=== PATIENT | male | born 1990 | race Caucasian/White ===

== ENCOUNTER 2018-07-24 00:27 | Emergency (ER) | payer OTHER ==
--- NOTE | 2018-07-24 01:37 | PDOC ---
History of Present Illness - General History Source: Patient Exam Limitations: No Limitations - History of Present Illness Initial Comments: 07/24/18 01:45 The patient is a 27 year old male with no PMH who presents to the ER for a sore throat today. Patient states he has had strep throat multiple times in the past , last time was 2 years ago. Patient has not followed up with ENT recently. Patient is requesting antibiotics and would not like to be tested for strep throat at this time. Rhe patient denies cough, chest pain, shortness of breath, headache and dizziness. Denies fever, chills, nausea, vomit, diarrhea and constipation. Denies dysuria, frequency, urgency and hematuria. Allergies: NKA Past surgical history: None reported. Social history: No reported alcohol, drug or cigarette use. <Shalonda Rojas - Last Filed: 07/24/18 01:45> <Kassi Reeves - Last Filed: 07/24/18 01:58> - General Chief Complaint: Sore Throat Stated Complaint: SORE THROAT Time Seen by Provider: 07/24/18 01:35 Past History <Shalonda Rojas - Last Filed: 07/24/18 01:45> - Immunization History Immunization Up to Date: Yes - Suicide/Smoking/Psychosocial Hx Smoking History: Never smoked Have you smoked in the past 12 months: No Hx Alcohol Use: No Drug/Substance Use Hx: No Substance Use Type: None <Kassi Reeves - Last Filed: 07/24/18 01:58> - Past Medical History Allergies/Adverse Reactions: Allergies Allergy/AdvReac Type Severity Reaction Status Date / Time No Known Allergies Allergy Verified 07/24/18 01:38 Home Medications: Ambulatory Orders NK [No Known Home Medication] 07/24/18 Review of Systems - Review of Systems Able to Perform ROS?: Yes Comments:: 07/24/18 01:46 ADULT ROS GENERAL/CONSTITUTIONAL: No fever or chills. No weakness. HEAD, EYES, EARS, NOSE AND THROAT: No change in vision. No ear pain or discharge. (+) sore throat. GASTROINTESTINAL: No nausea, vomiting, diarrhea or constipation. GENITOURINARY: No dysuria, frequency, or change in urination. CARDIOVASCULAR: No chest pain or shortness of breath. RESPIRATORY: No cough, wheezing, or hemoptysis. MUSCULOSKELETAL: No joint or muscle swelling or pain. No neck or back pain. SKIN: No rash NEUROLOGIC: No headache, vertigo, loss of consciousness, or change in strength/ sensation. ENDOCRINE: No increased thirst. No abnormal weight change. HEMATOLOGIC/LYMPHATIC: No anemia, easy bleeding, or history of blood clots. ALLERGIC/IMMUNOLOGIC: No hives or skin allergy. <Shalonda Rojas - Last Filed: 07/24/18 01:45> *Physical Exam - Vital Signs Last Vital Signs Temp Pulse Resp BP Pulse Ox 98.0 F 95 H 17 148/99 99 07/24/18 00:27 07/24/18 00:27 07/24/18 00:27 07/24/18 00:27 07/24/18 00:27 - Physical Exam Comments: 07/24/18 01:46 ADULT EXAM GENERAL: Awake, in no acute distress HEAD: No signs of trauma EYES: PERRLA, EOMI, sclera anicteric, conjunctiva clear, visual acuity grossly intact ENT: Auricles normal inspection, hearing grossly normal, nares patent. (+) Mild tonsilar edema, posterior pharyngeal erythema, no exudates. NECK: Normal ROM, supple, no lymphadenopathy, JVD, or masses LUNGS: Breath sounds equal, clear to auscultation bilaterally. No wheezes, and no crackles. Normal work of breathing. HEART: Regular rate and rhythm, normal S1 and S2, no murmurs, rubs or gallops ABDOMEN: Soft, nontender, normoactive bowel sounds. No guarding, no rebound. No masses. Non-distended. CHEST WALL: BACK: No midline tenderness. EXTREMITIES: Normal range of motion, no edema. No clubbing or cyanosis. No erythema, or tenderness NEUROLOGICAL: Alert, and fully oriented x4, Cranial nerves II through XII grossly intact. Normal speech, normal gait. DTRs 2/4 bilaterally. SKIN: Warm, Dry, normal turgor, no rashes or lesions noted. <Shalonda Rojas - Last Filed: 07/24/18 01:45> Moderate Sedation - Procedure Monitoring Vital Signs: Procedure Monitoring Vital Signs Temperature 98.0 F 07/24/18 00:27 Pulse Rate 95 H 07/24/18 00:27 Respiratory Rate 17 07/24/18 00:27 Blood Pressure 148/99 07/24/18 00:27 O2 Sat by Pulse Oximetry (%) 99 07/24/18 00:27 <Shalonda Rojas - Last Filed: 07/24/18 01:45> Medical Decision Making - Medical Decision Making 07/24/18 01:58 27-year-old well-appearing male with sore throat Patient states that he has had strep pharyngitis multiple times in the past He is refusing strep screen and requesting Bicillin He has been given ENT follow-up due to frequent throat infections He will also follow up with his primary care physician <Kassi Reeves - Last Filed: 07/24/18 01:58> *DC/Admit/Observation/Transfer - Attestations Scribe Attestion: 07/24/18 01:46 Documentation prepared by Shalonda Rojas, acting as medical care administrator for Kassi Reeves DO. <Shalonda Rojas - Last Filed: 07/24/18 01:45> - Discharge Dispostion Decision to Admit order: No - Attestations Physician Attestion: 07/24/18 01:55 I, Dr Kassi Reeves, attest that this document has been prepared under my direction and personally reviewed by me in its entirety. I further attest, that it accurately reflects all work, procedures and medical decision making performed by me. <Kassi Reeves - Last Filed: 07/24/18 01:58> Diagnosis at time of Disposition: Pharyngitis - Discharge Dispostion Disposition: HOME Condition at time of disposition: Stable - Referrals Referrals: Darren Carroll [Primary Care Provider] - Rich Fuller MD [Staff Physician] - - Patient Instructions Printed Discharge Instructions: DI for Pharyngitis/Tonsillopharyngitis -- Adult , DI for Strep Throat
[2018-07-24 01:39] VITALS: BP 148/99; PULSE 95; TEMP 98; BMI 25.8
[2018-07-24] MEDS ORDERED: PENICILLIN G BENZATHINE 1,200,000 UNIT/2 ML PFS IM ONE ×2 (01:45→02:34)
== END 2018-07-24 03:03 | disposition home or self-care (01) ==
LOC: JER 00:27
DX: J02.9 Acute pharyngitis, unspecified (principal)
CPT/HCPCS: 96372; 99281-25

== ENCOUNTER 2019-03-19 07:14 | Emergency (ER) | payer OTHER ==
[2019-03-19 07:26] VITALS: BMI 26.6
--- NOTE | 2019-03-19 07:57 | PDOC ---
History of Present Illness - General Chief Complaint: Sore Throat Stated Complaint: THROAT PAIN Time Seen by Provider: 03/19/19 07:40 History Source: Patient Exam Limitations: No Limitations Past History - Travel Traveled outside of the country in the last 30 days: No Close contact w/someone who was outside of country & ill: No - Past Medical History Allergies/Adverse Reactions: Allergies Allergy/AdvReac Type Severity Reaction Status Date / Time No Known Allergies Allergy Verified 03/19/19 07:25 Home Medications: Ambulatory Orders NK [No Known Home Medication] 07/24/18 COPD: No - Immunization History Immunization Up to Date: Yes - Psycho Social/Smoking Cessation Hx Smoking History: Never smoked Have you smoked in the past 12 months: No Information on smoking cessation initiated: No Hx Alcohol Use: No Drug/Substance Use Hx: No Substance Use Type: None Review of Systems - Review of Systems Able to Perform ROS?: Yes Comments:: 03/19/19 08:35 CONSTITUTIONAL: Present: fever Absent: chills, diaphoresis, generalized weakness, malaise, loss of appetite HEENT: Present: sore throat Absent: rhinorrhea, nasal congestion, throat pain, throat swelling, difficulty swallowing, mouth swelling, ear pain, eye pain, visual Changes CARDIOVASCULAR: Absent: chest pain, loss of consciousness, palpitations, irregular heart rate, peripheral edema RESPIRATORY: Absent: cough, shortness of breath, dyspnea with exertion, orthopnea, wheezing, stridor, hemoptysis GASTROINTESTINAL: Absent: abdominal pain, abdominal distension, nausea, vomiting, diarrhea, constipation, melena, hematochezia GENITOURINARY: Absent: dysuria, frequency, urgency, hesitancy, hematuria, flank pain, genital pain MUSCULOSKELETAL: Absent: myalgia, arthralgia, joint swelling SKIN: Absent: rash, itching, pallor HEMATOLOGIC/IMMUNOLOGIC: Absent: easy bleeding, easy bruising, lymphadenopathy, frequent infections ENDOCRINE: Absent: unexplained weight gain, unexplained weight loss, heat intolerance, cold intolerance NEUROLOGIC: Absent: headache, focal weakness or paresthesias, dizziness, unsteady gait, seizure, mental status changes, bladder or bowel incontinence PSYCHIATRIC: Absent: anxiety, depression, suicidal or homicidal ideation, hallucinations. Is the patient limited [place] proficient: No *Physical Exam - Vital Signs Last Vital Signs Temp Pulse Resp BP Pulse Ox 103.1 F H 128 H 18 109/79 100 03/19/19 07:23 03/19/19 07:23 03/19/19 07:23 03/19/19 07:23 03/19/19 07:23 - Physical Exam Comments: 03/19/19 08:36 GENERAL: The patient is awake, alert, and fully oriented, in no acute distress. HEAD: Normal with no signs of trauma. EYES: Pupils equal, round and reactive to light, extraocular movements intact, sclera anicteric, conjunctiva clear. HEENT: No nasal congestion or rhinorrhea. No sinus Tenderness. Mucous membranes are moist. (+) tonsillar erythema, exudate and edema. Tonsils 3+. Uvula is midline. No TM bulging, dullness or erythema. NECK: Neck is supple. (+) cervical adenopathy. No meningismus. No stridor. LUNGS: CTAB, (-) w/r/r. No accessory muscle use. EXTREMITIES: Normal range of motion, no edema. NEUROLOGICAL: Normal speech, normal gait. PSYCH: Normal mood, normal affect. SKIN: Warm, Dry, normal turgor, no rashes or lesions noted. Medical Decision Making - Medical Decision Making 03/19/19 08:38 The patient is a 28-year-old male with no past medical history who presents to the ER today for 2 days of sore throat and fever. He states that he usually gets a strep infection about once a year. He notes that it hurts to swallow; however, he is swallowing his secretions. He also reports one episode of nausea and vomiting yesterday. Denies cough, earache, nasal congestion, rhinorrhea. A/P: Pharyngitis On exam the throat is erythematous with exudate and 3+ edema of the tonsils. Uvula is midline. Patient is able to swallow his secretions. Patient is febrile to 103 in the ER. Positive cervical adenopathy. No cough. Centor criteria is a 4 at this time. We will treat empirically for strep throat given exam findings. Defer culture Bicillin given in the ER. Discharge home with primary care follow-up. I discussed the physical exam findings, ancillary test results and final diagnoses with the patient. I answered all of the patient's questions. The patient was satisfied with the care received and felt comfortable with the discharge plan and treatment plan. The Patient agrees to follow up with the primary care physician/specialist within 24-72 hours. Return precautions were given. Discharge - Discharge Information Problems reviewed: Yes Clinical Impression/Diagnosis: Pharyngitis Qualifiers: Pharyngitis/tonsillitis etiology: unspecified etiology Qualified Code(s): J02.9 - Acute pharyngitis, unspecified Condition: Stable Disposition: HOME - Admission No - Follow up/Referral Referrals: Darren Carroll [Primary Care Provider] - Sherwin Welch MD [Staff Physician] - - Patient Discharge Instructions Patient Printed Discharge Instructions: DI for Strep Throat Additional Instructions: You have strep throat. This is a bacterial infection. You were treated with Bicillin today. This is a long-acting antibiotic. You do not need any oral medication. You may take Motrin 800 mg every 8 hours as needed for pain or fever. Warm water gargles and cough drops and just may also help her symptoms. Please throw way your toothbrush 3 days into treatment to prevent reinfection. Please follow up with your primary care doctor next week. Return to emergency department if you have worsening pain, difficulty swallowing , changes in your voice, lightheadedness, dizziness, or any changes in your symptoms. - Post Discharge Activity Work/Back to School Note: Back to Work
[2019-03-19] MEDS ORDERED: DEXAMETHASONE LIQUID 0.5 MG/5 ML PO ONE (08:00)
[2019-03-19] MEDS ORDERED: IBUPROFEN 400 MG TABLET (FP) PO ONE ×2 (08:00→08:16)
[2019-03-19] MEDS ORDERED: PENICILLIN G BENZATHINE 1,200,000 UNIT/2 ML PFS IM ONE ×2 (08:00→08:21)
[2019-03-19] MEDS ORDERED: DEXAMETHASONE SOD PHOSPHATE 10 MG/1 ML VIAL ONE (08:15)
[2019-03-19 08:36] VITALS: BP 116/74; PULSE 120; TEMP 99
== END 2019-03-19 08:48 | disposition home or self-care (01) ==
LOC: JER 07:14
DX: J02.9 Acute pharyngitis, unspecified (principal)
CPT/HCPCS: 96372; 99281-25

== ENCOUNTER 2020-01-01 13:23 | Emergency (ER) | payer OTHER ==
[2020-01-01 13:30] VITALS: BP 124/74; PULSE 100; TEMP 97.5; BMI 26.6
[2020-01-01] MEDS ORDERED: DEXAMETHASONE LIQUID 0.5 MG/5 ML PO ONE (13:52)
[2020-01-01] MEDS ORDERED: ACETAMINOPHEN 325 MG TABLET (FP) PO ONE (13:52)
[2020-01-01] MEDS ORDERED: DEXAMETHASONE SOD PHOSPHATE 10 MG/1 ML VIAL ONE (13:54)
[2020-01-01] MEDS ORDERED: ACETAMINOPHEN 325 MG TABLET (FP) ONE (13:54)
--- NOTE | 2020-01-01 14:35 | PDOC ---
History of Present Illness - General Chief Complaint: Sore Throat Stated Complaint: SORE THROAT Time Seen by Provider: 01/01/20 13:38 History Source: Patient Exam Limitations: No Limitations Past History - Travel History Traveled outside of the country in the last 30 days: No Close contact w/someone who was outside of country & ill: No - Medical History Allergies/Adverse Reactions: Allergies Allergy/AdvReac Type Severity Reaction Status Date / Time No Known Allergies Allergy Verified 03/19/19 07:25 Home Medications: Ambulatory Orders Methylprednisolone [Medrol -] 4 mg PO ASDIR #21 tablet 01/01/20 COPD: No - Immunization History Immunization Up to Date: Yes - Psycho-Social/Smoking History Smoking History: Never smoked Have you smoked in the past 12 months: No Information on smoking cessation initiated: No - Substance Abuse Hx (Audit-C & DAST Scrn) How often the patient has a drink containing alcohol: Never Score: In Men: 4 or > Positive; In Women: 3 or > Positive: 0 Screen Result (Pos requires Nsg. Audit-10AR): Negative In the last yr the pt used illegal drug/Rx for NonMed reason: No Score: Yes response is considered Positive: 0 Screen Result (Positive result requires Nsg. DAST-10): Negative Review of Systems - Review of Systems Able to Perform ROS?: Yes Comments:: 01/01/20 14:33 CONSTITUTIONAL: Absent: fever, chills, diaphoresis, generalized weakness, malaise, loss of appetite HEENT: Present: Sore throat, difficulty swallowing Absent: rhinorrhea, nasal congestion, throat swelling, mouth swelling, ear pain, eye pain, visual Changes CARDIOVASCULAR: Absent: chest pain, loss of consciousness, palpitations, irregular heart rate, peripheral edema RESPIRATORY: Absent: cough, shortness of breath, dyspnea with exertion, orthopnea, wheezing, stridor, hemoptysis GASTROINTESTINAL: Absent: abdominal pain, abdominal distension, nausea, vomiting, diarrhea, constipation, melena, hematochezia GENITOURINARY: Absent: dysuria, frequency, urgency, hesitancy, hematuria, flank pain, genital pain MUSCULOSKELETAL: Absent: myalgia, arthralgia, joint swelling SKIN: Absent: rash, itching, pallor HEMATOLOGIC/IMMUNOLOGIC: Absent: easy bleeding, easy bruising, lymphadenopathy, frequent infections ENDOCRINE: Absent: unexplained weight gain, unexplained weight loss, heat intolerance, cold intolerance NEUROLOGIC: Absent: headache, focal weakness or paresthesias, dizziness, unsteady gait, seizure, mental status changes, bladder or bowel incontinence PSYCHIATRIC: Absent: anxiety, depression, suicidal or homicidal ideation, hallucinations. Is the patient limited [place] proficient: No *Physical Exam - Vital Signs Last Vital Signs Temp Pulse Resp BP Pulse Ox 97.5 F L 100 H 17 124/74 99 01/01/20 13:27 01/01/20 13:27 01/01/20 13:27 01/01/20 13:27 01/01/20 13:27 - Physical Exam 01/01/20 14:33 GENERAL: The patient is awake, alert, and fully oriented, in no acute distress. HEAD: Normal with no signs of trauma. EYES: Pupils equal, round and reactive to light, extraocular movements intact, sclera anicteric, conjunctiva clear. HEENT: No nasal congestion or rhinorrhea. No sinus Tenderness. Mucous membranes are moist. No tonsillar erythema, exudate or edema. Uvula is midline. No TM bulging, dullness or erythema EXTREMITIES: Normal range of motion, no edema. NEUROLOGICAL: Normal speech, normal gait. PSYCH: Normal mood, normal affect. SKIN: Warm, Dry, normal turgor, no rashes or lesions noted. ED Treatment Course - Medications Given in the ED: ED Medications Discontinued Medications Generic Name Dose Route Start Last Admin Trade Name Rodrigoq PRN Reason Stop Dose Admin Acetaminophen 650 mg 01/01/20 13:52 01/01/20 13:55 Tylenol - PO 01/01/20 13:53 650 mg ONCE ONE Administration Dexamethasone 10 mg 01/01/20 13:52 01/01/20 13:55 Decadron Liquid - PO 01/01/20 13:53 10 mg ONCE ONE Administration Medical Decision Making - Medical Decision Making 01/01/20 14:34 The patient is a 29-year-old male with no past medical history, presents to the ER with 4 days of sore throat. He states he frequently gets strep infections so he presents today for antibiotics. He states he has difficulty swallowing. Den ies cough, fever, recent travel, known COVID exposure. A/P: Pharyngitis Exam throat is mildly erythematous without exudate or edema. Uvula is midline. Centor criteria is a 1. Given patient gets frequent Bicillin shots for suspected Streptococcus infections, will obtain a strep swab today prior to administration of antibiotics given low Centor criteria. Decadron and Tylenol given for symptomatic relief. Reevaluate 01/01/20 14:42 Strep is negative. Will defer antibiotics at this time. Explained that a Bicillin shot will not necessarily work for the patient symptoms at this time. Throat culture sent for further evaluation. Discharge home with symptomatic relief and ENT follow-up. I discussed the physical exam findings, ancillary test results and final diagnoses with the patient. I answered all of the patient's questions. The patient was satisfied with the care received and felt comfortable with the discharge plan and treatment plan. The Patient agrees to follow up with the primary care physician/specialist within 24-72 hours. Return precautions were given. Discharge - Discharge Information Problems reviewed: Yes Clinical Impression/Diagnosis: Pharyngitis Qualifiers: Pharyngitis/tonsillitis etiology: unspecified etiology Qualified Code(s): J02.9 - Acute pharyngitis, unspecified Condition: Stable Disposition: HOME - Admission No - Follow up/Referral Referrals: Robert Rivas MD [Staff Physician] - - Patient Discharge Instructions Patient Printed Discharge Instructions: DI for Pharyngitis/Tonsillopharyngitis -- Adult Additional Instructions: You have a sore throat or pharyngitis. Rapid strep testing was negative today. You may take Motrin 600 mg every 6 hours as needed for pain. Please do warm water gargles and cough drops to help with your pain. Change your toothbrush when you started feeling better. Follow-up with your primary care doctor. Return to the ER for fever, difficulty breathing, difficulty swallowing, or if you have any changes in your symptoms. - Post Discharge Activity Work/Back to School Note: Back to Work
== END 2020-01-01 14:46 | disposition home or self-care (01) ==
LOC: JERFT 13:23
DX: J02.9 Acute pharyngitis, unspecified (principal)
CPT/HCPCS: 87070; 87880; 99283-25

== ENCOUNTER 2021-09-26 17:00 | Emergency (ER) | payer OTHER ==
[2021-09-26 17:31] VITALS: BP 133/93; PULSE 107; TEMP 99.3; BMI 27.3
[2021-09-26] MEDS ORDERED: DEXAMETHASONE SOD PHOSPHATE 10 MG/1 ML VIAL IM ONE (20:11)
[2021-09-26] MEDS ORDERED: ACETAMINOPHEN 500 MG TABLET (FP) PO ONE (20:11)
[2021-09-26] MEDS ORDERED: ACETAMINOPHEN 500 MG TABLET (FP) ONE (20:15)
[2021-09-26] MEDS ORDERED: DEXAMETHASONE SOD PHOSPHATE 10 MG/1 ML VIAL ONE (20:15)
== END 2021-09-26 22:08 | disposition home or self-care (01) ==
LOC: JER 17:00
PROC: 3E023GC Introduction of Other Therapeutic Substance into Muscle, Percutaneous Approach (ICD-10-PCS; principal; 2021-09-26)
DX: J02.9 Acute pharyngitis, unspecified (principal)
CPT/HCPCS: 0241U-QW; 87651; 99284-25; J1100